=== PATIENT | female | born 2000 | race Caucasian/White ===

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

== ENCOUNTER 2022-12-20 13:37 | Outpatient (CLI) | payer BC | END 2022-12-20 13:38 | disposition home or self-care (01) | LOC: ULT 13:37 | PROVIDERS: ATTEND Student in an Organized Health Care Education/Training Program | DX: E28.2 Polycystic ovarian syndrome (principal) | CPT/HCPCS: 76856; 93976 ==